=== PATIENT | male | born 1985 | race Caucasian/White ===

== ENCOUNTER 2016-10-25 15:51 | Emergency (ER) | payer OTHER ==
[2016-10-25 16:00] VITALS: BMI 24.0
--- NOTE | 2016-10-25 16:20 | PDOC ---
History of Present Illness - General Chief Complaint: Chest Pain Stated Complaint: SOB, CHEST PAIN Time Seen by Provider: 10/25/16 16:13 History Source: Patient Exam Limitations: No Limitations - History of Present Illness Initial Comments: 10/25/16 16:20 CC: SOB/Chest Pains Mr. Gutierrez is a 31 y/o male with no significant medical history presenting to the ED this afternoon complaining of chest pain and shortness of breath. He states that his symptoms started on SundayOctober 23 and admits to shortness of breath, dizziness on standing, productive cough, nausea and one episode of diarrhea. Pt. states that he did not take his temperature but has had chills and sweats. He went to urgent care on Sunday and was prescribed Azithromycin, prednisone, and promethazine. Pt. states that he has not taken any of the medication that he was prescribed as he was afraid that he had a viral infection. He states that his symptoms have gotten worse over the past two days. Tylenol has helped with his symptoms. Upon arrival vitals are notable for fever of 100.5 and HR of 105. REVIEW OF SYSTEMS: GENERAL/CONSTITUTIONAL: (+) fever and chills. No weakness. No weight change. HEAD, EYES, EARS, NOSE AND THROAT: (+) sinus pain. No change in vision. No ear pain or discharge. No sore throat. CARDIOVASCULAR: (+) chest pain with coughing. No palpitations. RESPIRATORY: (+) productive cough with green sputum, shortness of breath. Denies wheezing. GASTROINTESTINAL: (+) nausea, diarrhea x1 episode. Denies vomiting or constipation. GENITOURINARY: No dysuria, frequency, or change in urination. MUSCULOSKELETAL: No joint or muscle swelling or pain. No neck or back pain. SKIN: No rash or easy bruising. NEUROLOGIC: No headache, vertigo, loss of consciousness, or loss of sensation. PSYCHIATRIC: No depression or anxiety. ENDOCRINE: No increased thirst. No abnormal weight change. HEMATOLOGIC/LYMPHATIC: No anemia, easy bleeding, or history of blood clots. ALLERGIC/IMMUNOLOGIC: No hives or skin allergy. No latex allergy. PHYSICAL EXAM: GENERAL: The patient is awake, alert, and fully oriented, in no acute distress. Pt. hyperemic. HEAD: Normal with no signs of trauma. ENT: Pain with palpation of the maxillary and frontal sinuses. Pupils equal, round and reactive to light, extraocular movements intact, sclera anicteric, conjunctiva clear. Neck supple. LUNGS: Coarse L/S B/L.. Normal excursion. No respiratory distress or use of accessory muscles. CV: Mildly tachycardic RRR, S1/S2, no MRG. Cap refill < 2 sec. ABDOMEN: Soft, non-distended, non-tender. NEUROLOGICAL: Normal speech, normal gait. CN II-XII grossly intact. PSYCH: Normal mood, normal affect. Past History - Past Medical History Allergies/Adverse Reactions: Allergies Allergy/AdvReac Type Severity Reaction Status Date / Time No Known Drug Allergies Allergy Verified 10/25/16 16:32 bee stings Allergy Uncoded 10/25/16 16:00 Asthma: Yes - Psycho/Social/Smoking Cessation Hx Anxiety: No Suicidal Ideation: No Smoking History: Never smoked Have you smoked in the past 12 months: No Information on smoking cessation initiated: No Substance Use Type: None *Physical Exam - Vital Signs Last Vital Signs Temp Pulse Resp BP Pulse Ox 100.5 F H 105 H 18 130/73 100 10/25/16 15:55 10/25/16 15:55 10/25/16 15:55 10/25/16 15:55 10/25/16 15:55 Medical Decision Making - Medical Decision Making 10/25/16 17:12 A/P: 31 y/o male presents to the ED with no past medical history presenting with three days of cold/flu like symptoms. 1. Tylenol 650mg for Fever 2. CXR R/O infiltrate 3. Flu swab done 4. PE considered but unlikely: Low risk by WELL's Criteria *DC/Admit/Observation/Transfer Diagnosis at time of Disposition: Influenza - Discharge Dispostion Disposition: HOME Condition at time of disposition: Stable Admit: No - Referrals Referrals: Christelle Garrett MD [Primary Care Provider] - 1 week - Patient Instructions Printed Discharge Instructions: DI for Influenza -- Adult Additional Instructions: You were seen today for chest pain with cough, fever, dizziness and shortness of breath. Your flu test was positive. Rest and stay well hydrated. You may use the cough syrup you were previously prescribed. Do not drive after taking the cough syrup. Take ibuprofen for fever and pain. Return to work on [address] [employer] [employer] Follow up with primary care provider in one week. If shortness of breath gets worse, return to ED. - Post Discharge Activity Work/School Note: Back to Work
[2016-10-25] MEDS ORDERED: ACETAMINOPHEN 325 MG TABLET (FP) PO ONE (16:21)
[2016-10-25] MEDS ORDERED: ACETAMINOPHEN 325 MG TABLET (FP) ONE (16:38)
--- NOTE | 2016-10-25 17:29 | PDOC ---
[id number] 130/73 98 10/25/16 15:55 10/25/16 15:55 10/25/16 15:55 10/25/16 15:55 10/25/16 16:29 ED Treatment Course - Medications Given in the ED: ED Medications Discontinued Medications Generic Name Dose Route Start Last Admin Trade Name Nishi PRN Reason Stop Dose Admin Acetaminophen 650 mg 10/25/16 16:21 10/25/16 16:39 Tylenol - PO 10/25/16 16:22 650 mg ONCE ONE Administration Medical Decision Making - Medical Decision Making 10/25/16 17:29 Pt seen by the Advanced Practice Provider under my direct supervision Ancillary studies reviewed I agree with plan as outlined by the Advanced Practice Provider ANDREA Somers History and physical with chest discomfort with URI symptoms, sputum production , bodyaches, chills with positive influenza on swab suggests influenza as the source of his discomfort. *DC/Admit/Observation/Transfer Diagnosis at time of Disposition: Influenza - Discharge Dispostion Disposition: HOME - Prescriptions Prescriptions: Ibuprofen 600 mg PO Q6H #20 tablet - Referrals Referrals: Christelle Garrett MD [Primary Care Provider] - 1 week - Patient Instructions Printed Discharge Instructions: DI for Influenza -- Adult Additional Instructions: You were seen today for chest pain with cough, fever, dizziness and shortness of breath. Your flu test was positive. Rest and stay well hydrated. You may use the cough syrup you were previously prescribed. Do not drive after taking the cough syrup. Take ibuprofen for fever and pain. Return to work on SundayOctober 30 Follow up with primary care provider in one week. If shortness of breath gets worse, return to ED. - Post Discharge Activity Work/School Note: Back to Work
[2016-10-25 17:44] VITALS: BP 130/82; PULSE 56; TEMP 98.3
[2016-10-25] MEDS ORDERED: ONDANSETRON *ODT* 4 MG TABLET ONE (19:22)
--- NOTE | 2016-10-30 16:24 | EKG ---
Test Reason : Blood Pressure : / mmHG Vent. Rate : 105 BPM Atrial Rate : 105 BPM P-R Int : 132 ms QRS Dur : 070 ms QT Int : 298 ms P-R-T Axes : 078 078 059 degrees QTc Int : 393 ms SINUS TACHYCARDIA POSSIBLE LEFT ATRIAL ENLARGEMENT BORDERLINE ECG NO PREVIOUS ECGS AVAILABLE Confirmed by MIRIAN BOONE MD ([id number]) on 10/30/2016 4:24:41 PM Referred By: Confirmed By:MIRIAN BOONE MD
== END 2016-10-25 17:46 | disposition home or self-care (01) ==
LOC: JER 15:51
DX: J09.X2 Influenza due to identified novel influenza A virus with other respiratory manifestations (principal)
CPT/HCPCS: 71020-TC; 87804; 93005; 93010; 99284-25

== ENCOUNTER 2019-03-16 02:12 | Emergency (ER) | payer OTHER ==
--- NOTE | 2019-03-16 02:15 | PDOC ---
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 The patient states that he felt he was dehydrated during the day and that his work area was warm and he did not drink any fluids during the day. He noted that his urine was highly concentrated. After onset of the headache he drank large quantity of water and took one low-dose (81 mg) tablet of aspirin, which was the only analgesic he had in his house. He presents to the ER because of persistence of headache. He has mild nausea but he denies vomiting. There has been no vision changes/extremity weakness/vertigo or balance problems. He has had no difficulty in word recall or speech. He had presented a few years ago elsewhere with headache. Although he was discharged from the ED, subsequent MRI follow-up by neurologist revealed small clival tumor. Since then, he has been followed with yearly CT scans and twice yearly MRI scans. Most recent MRI was 08/25. There has never been any change in the size or any other complication of the mass Denies alcohol/smoking/other drugs Medications Finasteride for hair loss(the last 8 years) NO KNOWN DRUG ALLERGIES Past History - Past Medical History Allergies/Adverse Reactions: Allergies Allergy/AdvReac Type Severity Reaction Status Date / Time No Known Drug Allergies Allergy Verified 10/25/16 16:32 bee stings Allergy Uncoded 10/25/16 16:00 Home Medications: Ambulatory Orders Finasteride 2.5 mg PO DAILY 10/07/18 Asthma: Yes COPD: No - Immunization History Immunization Up to Date: Yes - Suicide/Smoking/Psychosocial Hx Smoking History: Never smoked Have you smoked in the past 12 months: No Substance Use Type: None Review of Systems - Review of Systems Able to Perform ROS?: Yes Comments:: 12 point review of systems is negative except for what is noted in the history of present illness *Physical Exam - Physical Exam Comments: GENERAL: Adult male, alert and oriented 3, in mild distress secondary to headache pain HEAD: Normal with no signs of trauma. EYES: PERRLA, pupils 3.5 mm bilaterally equal and reactive EOMI, sclera anicteric, conjunctiva clear. ENT: Ears normal, nares patent, oropharynx clear without exudates. Dry mucous membranes. NECK: Normal range of motion, supple without lymphadenopathy, JVD, or masses. LUNGS: Breath sounds equal, clear to auscultation bilaterally. No wheezes, and no crackles. HEART:Regular rate and rhythm, normal S1 and S2 without murmur, rub or gallop. EXTREMITIES: Normal range of motion, no edema. No clubbing or cyanosis. No erythema, or tenderness. NEUROLOGICAL: Cranial nerves II through XII grossly intact. Normal , fluent speech without dysarthria. No pronator drift. Normal gait. SKIN: Warm, Dry, normal turgor, no rashes or lesions noted. Progress Note - Progress Note Progress Note: Sudden onset frontal and R retro-orbital pain in 33 year old man with known stable clival tumor and no focal neuro deficits on exam. Because of the small but distinct possibility of intracranial bleed, noncontrast head CT will be performed prior to administering any analgesia. The patient understands and agrees to it. Medical Decision Making - Medical Decision Making 03/16/19 03:58 Because patient feels better, with lessening of headache pain (with no analgesic or other therapy being given), he has refused head CT to rule out intracranial hemorrhage. It was explained to the patient that sudden onset severe headache , especially in a patient who has a known mass, can potentially be related to intracranial bleeding. Although he has had improvement in symptoms, evaluation for a vascular event has not been performed and bleeding could still be present. Patient understands that permanent neurologic damage/ is possible. He states that since he has been having yearly head CTs, he is worried about radiation exposure. He understands that risk of ongoing intracranial bleed far exceeds the risk of radiation exposure of [address] Patient signed out AGAINST MEDICAL ADVICE. He agreed to return to the ER if he has any recurrent headache/vomiting/acute neurologic deficit. He will call his neurologist at [facility] on Sunday, March 17 for follow-up *DC/Admit/Observation/Transfer Diagnosis at time of Disposition: Chordoma of clivus Headache Qualifiers: Headache type: unspecified Headache chronicity pattern: episodic headache Intractability: not intractable Qualified Code(s): R51 - Headache - Discharge Dispostion Disposition: AGAINST MEDICAL ADVICE Condition at time of disposition: Stable - Referrals Referrals: Fidel Collier [Primary Care Provider] - - Patient Instructions Additional Instructions: Return to ER immediately if you have recurrent headache, visual changes, nausea/ vomiting, leg/arm weakness Call your neurologist on Sunday, March 17 and arrange for follow-up evaluation JORGE A - Post Discharge Activity
[2019-03-16 02:18] VITALS: BP 121/80; PULSE 55; TEMP 97.8; BMI 25.9
== END 2019-03-16 03:57 | disposition left against medical advice (07) ==
LOC: FER 02:12
DX: C41.0 Malignant neoplasm of bones of skull and face (principal); R51 Headache; J45.909 Unspecified asthma, uncomplicated
CPT/HCPCS: 99281-25